=== PATIENT | male | born 1995 | race Caucasian/White ===

== ENCOUNTER 2021-02-03 09:52 | Outpatient (REF) | payer MEDICAID, SELFPAY ==
--- NOTE | 2021-02-03 12:17 | MHC.AU.HFU ---
Hearing Instrument Follow-Up- Binaural Date of Visit: 02/03/21 Right Ear: Accounts Receivable Clerk: Oticon Model: OPN 3 PP BTE Serial Number: [id number] Repair Warranty: 12/05/2018 Battery Size: 13 Color: [place] Brown Tubin-1 Corda Slim Tube Type of Mold: CORDA hard canal lock mold Warranty 02/20/2017 Type of Wax Guard: ProWax (baron) Dispensed By: [facility] Date of Fittin11/23/2016 Left Ear: Accounts Receivable Clerk: Oticon Model: OPN 3 PP BTE Serial Number: [id number] Repair Warranty: 12/05/2018 Battery Size: 13 Color: [place] Brown Tubin-0 Corda Slim Tube Type of Mold: CORDA hard canal lock mold Warranty 02/20/2017 Type of Wax Guard: ProWax (baron) Dispensed By: [facility] Date of Fittin11/23/2016 Follow-Up Summary: Rasheed is accompanied by his mother who reports Rasheed has not been wearing his hearing aids and hearing has changed. Rasheed had ear surgery related to his bilateral T-Tubes and hearing test done at the ENT office was updated in [facility]. Re-programmed OPN 3 PP BTE aids to newest audiogram with patient reporting improvement in hearing while in office. Mother reports Rasheed has been saying the earmold canal lock has been bothering him and the aids have been whistling. The canal lock has not been inserted all the way into the proper area of the ears. Mother practiced insertion and now realizes the proper placement and feedback has stopped. Tried to reprogram the old Oticon Safari 600 BTE aids; however, the right aid would not connect to [facility] software after several attempts. Aid is no longer supportd by Oticon so cannot have it fixed. Cleaned the OPN 3 PP BTE aids cleaning microphones and contacts. Both aids had size 09-2 slim tubes, but the aids were too long and not fitting well over the pinnas. Changed to Right 09-1 and Left 09-0 with improved fit of aids. As patient was leaving office, he reported he did not want to wear the aids now. Mother thinks being able to connect with her Optimal Blue cell phone and listening to his music would motivate him to wear the aids. Mother is interested in a DEMO for the Oticon ConnectClip. The office demo was not charged so could not demo today. Mother will schedule appointment and DEMO is charging on the shelf. Recommendations: Mother will call office to schedule appointment to DEMO OTICON CONNECTCLIP CHARGING ON THE SHELF. Diagnosis Code(s): Primary Diagnosis: H90.6 Mixed Hearing Loss, Bilateral Secondary Diagnosis: H69.93 Unspecified Eustachian Tube Dysfunction, Bilateral Services Performed: [place] Non-Quantity Charges: HAFOC-REFIT [place] MH> 1yr or new to us HACHECKB (MH>1 yr or new to us) Face to face appointment Signature: Provider: Holli Bhatia, CCC-A
== END 2021-02-03 09:53 | disposition home or self-care (01) ==
LOC: HO.HAP 09:52
PROVIDERS: Visit Provider Family Medicine
DX: Z46.1 Encounter for fitting and adjustment of hearing aid (principal); H90.6 Mixed conductive and sensorineural hearing loss, bilateral; H69.93 Unspecified Eustachian tube disorder, bilateral
CPT/HCPCS: 92593; V5011

== ENCOUNTER 2022-10-11 10:43 | Outpatient (REF) | payer OTHER, SELFPAY ==
--- NOTE | 2022-10-11 18:35 | MHC.AU.MED ---
Medical Clearance for Hearing Instrumentation Date: 10/11/22 Patient Name: Rasheed Tillman Date of : 1995 Referring Provider: Oniel Hoffman MD We have seen your patient on 10/11/22 and have determined that they are a candidate for amplification (See accompanying report). Specifically, they would benefit from: Hearing aid use in the right ear Hearing aid use in the left ear Hearing aid use in both ears There is a statute that addresses Medical Evaluation Requirements prior to fitting a patient with a hearing aid. According to [place] statute 265 CMR:6.03(1), (a) General. Except as provided in 265 CMR 6.03(1)(b), a plating technician shall not sell a hearing aid unless the prospective user has presented to the plating technician a written statement signed by a licensed physician that states that the patient's hearing loss has been medically evaluated and the patient may be considered a candidate for a hearing aid. The medical evaluation must have taken place within the preceding six months. Please note: Due to the [place] Statute referenced above, we cannot accept a signature other than that of a licensed physician. UNDERWRITING MANAGER and PA signatures cannot be accepted. I am in agreement with the above recommendation. There is no medical contraindication for hearing instrumentation. Physician Signature Date Physician Name (Printed)
--- NOTE | 2022-10-12 09:04 | MHC.AU.HA1 ---
Hearing Aid Evaluation Date of Visit: 10/11/22 Historical Information: Description of Hearing: Right Ear - Moderately-severe to profound mixed hearing loss Left Ear - Moderate to profound mixed hearing loss Current personal amplification information, if applicable: 2017 binaural Oticon OPN 3 PP BTE Summary: Rasheed has not been using his current aids as they have been uncomfortable and he prefers the standard BTE style he has used in the past. In order to motivate him to wear the aids more, advise new aids with bluetooth capability as he listens to his music often during his day. Hearing Aid Prescription: Based on the individual?s shared listening needs, communication environments, dexterity, desire for connectivity, and personal preferences, the following prescription for amplification has been made: Right ear: Make, Model, Color: Rank By Searchv AI 1600 BTE-R Champagne Battery Size: Rechargeable Plate Slitter And Inspector/Slim Tube: Type of Earmold/Dome/CShell/SlimTip: Roxane - Skeleton mold Left ear:Left ear prescription to be same as Right Hearing Aid above: Make, Model, Color: Access Scientific Evolv AI 1600 BTE-R Champagne Battery Size: Rechargeable Plate Slitter And Inspector/Slim Tube: Type of Earmold/Dome/CShell/SlimTip: Roxane - Skeleton mold Plan of Care: Patient wishes to purchase hearing aids as prescribed Action Taken/Action Needed:Earmold Impressions Taken, Medical Clearance to be requested from PCP/ENT Hearing Instrument Fitting to be scheduled when materials arrive Primary Diagnosis: H90.6 Mixed Hearing Loss, Bilateral Secondary Diagnosis: H69.93 Unspecified Eustachian Tube Dysfunction, Bilateral Signature:Provider: Cristian Bhatia, [facility]
== END 2022-10-11 10:44 | disposition home or self-care (01) ==
LOC: HO.SH 10:43
PROVIDERS: Visit Provider Family Medicine
DX: H90.6 Mixed conductive and sensorineural hearing loss, bilateral (principal); H69.93 Unspecified Eustachian tube disorder, bilateral
CPT/HCPCS: 92557; 92567; 92591; V5275

== ENCOUNTER 2022-11-29 10:09 | Outpatient (REF) | payer OTHER, SELFPAY | END 2022-11-29 10:10 | disposition home or self-care (01) | LOC: HO.HAP 10:09 | PROVIDERS: Visit Provider Family Medicine | DX: Z46.1 Encounter for fitting and adjustment of hearing aid (principal); H90.6 Mixed conductive and sensorineural hearing loss, bilateral | CPT/HCPCS: 92595; V5011; V5020; V5160; V5261; V5264 ==

== ENCOUNTER 2022-12-26 15:54 | Outpatient (REF) | payer OTHER, SELFPAY ==
--- NOTE | 2022-12-27 08:44 | MHC.AU.HA3 ---
Hearing Instrument Follow-Up- Binaural Date of Visit: 12/26/22 Right Ear: Zan, , Color, Serial Number: Roxane HERNANDEZ 1600 BTE-R SN: [id number] Color: Bellae Log Check Scaler Repair Warranty: 02/08/2026 Log Check Scaler Loss and Damage Warranty: 02/08/2026 [facility] Service Plan: 11/30/2023 Battery Size: Rechargeable Earmold/Dome/CShell/SlimTip:Roxane High Strength Silicone 40 Shore Skeleton Earmold SN: [id number] Marian: 02/08/2023 Dispensed By: [facility] Date of Fittin11/29/2022 Left Ear: Zan, , Color, Serial Number: Roxane HERNANDEZ 1600 BTE-R SN: [id number] Color: Luisagne Log Check Scaler Repair Warranty: 02/08/2026 Log Check Scaler Loss and Damage Warranty: 02/08/2026 [facility] Service Plan: 11/29/2022 Battery Size: Rechargeable Earmold/Dome/CShell/SlimTip: Roxane High Strength Silicone 40 Shore Skeleton Earmold SN: [id number] Marian: 02/08/2023 Dispensed By: [facility] Date of Fittin11/29/2022 Follow-Up Summary: Mom reported that overall she notices a significant benefit with these hearing aids compared to his old ones. His communication, participation in conversations, and responsiveness are all greatly improved. Rasheed reportedly loves streaming music to his hearing aids. However, his compliance with wearing the hearing aids is still down. Confirmed via data logging of only 1 hour of use per day. Mom reported that Rasheed will be moving in with her soon and she will encourage and enforce more consistent use. Disabled volume control at mom's request and instructed use for manual on/off using push button. Also discussed WDRC and MPO as mom reported that dad was concerned about settings being too loud. Rasheed reportedly had an appointment [facility] for wax removal, which the office cancelled. Otoscopy revealed clear left ear canal and only slight wax in the right ear canal. Mom and Rasheed decided to donate his old Oticon OPN 3 PP BTE hearing aids. Discussed need for periodic tubing changes. Recommendations: Hearing instrument maintenance in 6 months, or sooner if needed. Please contact our clinic with any questions or concerns. Diagnosis Code(s): Primary Diagnosis: H90.6 Mixed Hearing Loss, Bilateral Signature: Provider: Cristian Jo, [facility]
== END 2022-12-26 15:55 | disposition home or self-care (01) ==
LOC: HO.HAP 15:54
PROVIDERS: Visit Provider Family Medicine
DX: Z13.89 Encounter for screening for other disorder (principal)

== ENCOUNTER 2022-12-31 13:03 | Outpatient (REF) | payer OTHER, SELFPAY | END 2022-12-31 13:04 | disposition home or self-care (01) | LOC: HO.HAP 13:03 | PROVIDERS: Visit Provider Family Medicine | DX: Z13.89 Encounter for screening for other disorder (principal) ==

== ENCOUNTER 2023-01-01 16:08 | Outpatient (REF) | payer OTHER, SELFPAY | END 2023-01-01 16:09 | disposition home or self-care (01) | LOC: HO.HAP 16:08 | PROVIDERS: Visit Provider Family Medicine | DX: Z13.89 Encounter for screening for other disorder (principal) ==

== ENCOUNTER 2023-02-28 13:16 | Outpatient (REF) | payer OTHER, SELFPAY | END 2023-02-28 13:17 | disposition home or self-care (01) | LOC: HO.HAP 13:16 | PROVIDERS: Visit Provider Family Medicine | DX: Z13.89 Encounter for screening for other disorder (principal) ==

== ENCOUNTER 2023-03-01 16:14 | Outpatient (REF) | payer OTHER, SELFPAY | END 2023-03-01 16:15 | disposition home or self-care (01) | LOC: HO.HAP 16:14 | PROVIDERS: Visit Provider Family Medicine | DX: Z13.89 Encounter for screening for other disorder (principal) ==

== ENCOUNTER 2023-04-15 08:59 | Outpatient (REF) | payer OTHER, SELFPAY | END 2023-04-15 09:00 | disposition home or self-care (01) | LOC: HO.HAP 08:59 | PROVIDERS: Visit Provider Family Medicine | DX: Z13.89 Encounter for screening for other disorder (principal) ==

== ENCOUNTER 2024-10-07 10:18 | Emergency (ER) | payer OTHER, SELFPAY ==
--- NOTE | ~2024-10-07 | XR_ITS ---
Exam: 3 views right ankle and 3 view right foot. TECHNIQUE: AP, lateral, and oblique views right lower extremity and right lower extremity joint INDICATION: Pain and swelling since last night FINDINGS: Right ankle: Ankle mortise is preserved. There is borderline widening of the syndesmosis on the mortise view that could be projectional. No fractures identified. No degenerative changes are evident. Right foot: There is hallux valgus deformity. There is no joint diastases or malalignment across the Lisfranc joint. No degenerative changes are evident. No fractures are evident. XR/XR foot RT min 3V IMPRESSION: There is borderline widening of the syndesmosis that could be projectional in nature. Correlate for signs and symptoms of high ankle sprain. There is hallux valgus deformity of the right foot. Electronically signed by: Nate Mari MD 10/07/2024 12:35 PM EDT
--- NOTE | ~2024-10-07 | XR_ITS ---
Exam: 3 views right ankle and 3 view right foot. TECHNIQUE: AP, lateral, and oblique views right lower extremity and right lower extremity joint INDICATION: Pain and swelling since last night FINDINGS: Right ankle: Ankle mortise is preserved. There is borderline widening of the syndesmosis on the mortise view that could be projectional. No fractures identified. No degenerative changes are evident. Right foot: There is hallux valgus deformity. There is no joint diastases or malalignment across the Lisfranc joint. No degenerative changes are evident. No fractures are evident. XR/XR ankle RT min 3V IMPRESSION: There is borderline widening of the syndesmosis that could be projectional in nature. Correlate for signs and symptoms of high ankle sprain. There is hallux valgus deformity of the right foot. Electronically signed by: Nate Mari MD 10/07/2024 12:35 PM EDT
[2024-10-07 10:58] VITALS: BP 114/77; PULSE 84; RESP 16; TEMP 36.3; O2SAT 94
[2024-10-07 11:02] VITALS: BP 114/77; PULSE 84; RESP 16; TEMP 36.3; O2SAT 94; BMI 41.1
--- OUTSIDE RECORDS SUMMARY | 2024-10-07 11:56 | XMS_ITS | Encounter Summary ---
Author Organization [facility] Address [address] [place] [id number] Phone Care Team Providers Care Military Equipment Specialist Name Role Phone Alvina Herrmann MD Primary Care Provider Encounter Details Date Type Department Care Team (Late st Contact Info) Description 06/03/2015 Documentation EM Family Medicine [address] [place] [address] Family Medicine, Physician [address] [place], [place] [id number] Social History Tobacco Use Types Packs/Day Years Used Date Smoking Tobacco: Never Assessed Sex and Gender Information Value Date Recorded Sex Assigned at Not on file Legal Sex Male 5:05 PM EDT Gender Identity Not on file Sexual Orientation Not on file documented as of this encounter Plan of Treatment Not on file documented as of this encounter Visit Diagnoses Not on filedocumented in this encounter Care Teams Military Equipment Specialist Relationship Specialty Start Date End Date Alvina Herrmann MD [address] [place] [address] [place] [id number] PCP - General 12/14/16 08/07/22 documented as of this encounter
--- NOTE | 2024-10-07 11:59 | ED_ITS ---
HPI - Extremity Injury (Lower) General Chief Complaint: Extremity Injury, Lower Stated Complaint: R Foot Non Weight Bearing Time Seen by Provider: 10/07/24 11:51 Source: patient and family Mode of arrival: ambulatory Limitations: no limitations History of Present Illness ED Provider: Bernadine Aleman PA-C HPI Narrative: Right sided foot pain around dorsum of foot, works out 3 days a week. Has flat feet and intermittent feels pain over dorsum of foot and big toe 1st MTP region, soreness no falls or trauma. No paresthesias or weakness. He does not routinely wear his supportive inserts as they are not his most favorite shoes. No knee, calf, toe, or hip pain. No skin color changes. Has a inventory specialist, mother plans to see them soon with patient. Related Data Previous Rx's ?Medication ?Instructions ?Recorded meloxicam 15 mg tablet 15 mg PO DAILY #14 tabs 08/28 Allergies Allergy/AdvReac Type Severity Reaction Status Date / Time sulfamethoxazole (From Allergy Rash Verified 10/07/24 11:05 Bactrim) trimethoprim (From Bactrim) Allergy Rash Verified 10/07/24 11:05 Review of Systems Review of Systems: Yes all other systems are reviewed and are negative Eyes: Eyes: Reports as per [facility] Past Medical History Attestation statement: The following information was validated with the patient. [facility] Narrative: Down Syndrome Physical Exam Vital Signs: Vital Signs: Last Vital Signs Temp 97.3 F 10/07/24 13:07 Pulse 84 10/07/24 13:07 Resp 16 10/07/24 13:07 BP 114/77 10/07/24 13:07 Pulse Ox 94 10/07/24 13:07 O2 Del Method Room Air 10/07/24 13:07 BMI result Body Mass Index 41.1 General: Appears in no acute distress, appears well nourished body habitus is overweight, wide set eyes, appears stated age. No septic or ill-appearing. Vitals reviewed normal, PMH/Social and Surgical hx reviewed including allergies and current medications. - reviewed for prior visits here Head: Normocephalic, no obvious trauma or skin lesions noted. Eyes: EOMI ENMT: moist oral mucosa Neck: trachea midline Cardiovascular: peripheral perfusion normal, Regular heart rate Respiratory: no respiratory distress Abdomen: nondistended Extremities: warm and moving without difficulty- TTP over 1st MTP mild, hallux valgus deformity R side > L side, no erythema or ecchymosis, compartments are soft DTRs intact, patient giggles with sole palpation no ankle instability noted, skin appears well hydrated and healthy. Psych: Cooperative Neuro: Alert and oriented. Course Course Course Narrative: Patient presents to ED today for evaluation of right sided foot pain. NATALIYA is likely repetitive stress and failure to wear supportive foot wear with acquired hallus valgus deformity. This is not work related. H and P as above. Patient is afebrile with stable vitals and well-appearing. History and physical as stated above. Patient is neurovascular intact in the affected extremity. X- rays were obtained to further evaluate. At this time no evidence of NVC to warrant further work up/ intervention or consult. They show no acute fractures. Patient's symptoms are consistent with a foot sprain with exacerbation of hallus valgus deformity leading to regional inflammation of tendon shealth (tenosynovitis), NVI. Wells score for VTE is 0. Discussed icing it, elevating and alternating ibuprofen and Tylenol for discomfort. Discussed that there is no significant improvement in the next 1 to 2 weeks to follow-up with an orthopedic clinic and or his inventory specialist, information given. Discussed symptomatic treatment with the patient and parent. Discussed return precautions. Patient verbalized understanding of the above plan and is in agreement with the above plan. The patient was discharged home in stable condition with return precautions. Medical Decision Making Medical Decision Making MDM Narrative: Patient presents to ED today for evaluation of [] . NATALIYA is []. This [is/is not] work related. H and P as above. Patient is afebrile with stable vitals and well-appearing. History and physical as stated above. Patient is neurovascular intact in the affected extremity. X- rays were obtained to further evaluate. At this time no evidence of NVC to warrant further work up/ intervention or consult. They show no acute fractures. Patient's symptoms are consistent with a [sprain]. Patient's [] was placed in a splint. Discussed icing it, elevating and alternating ibuprofen and Tylenol for discomfort. Discussed that there is no significant improvement in the next 1 to 2 weeks to follow-up with an orthopedic clinic, information given. Discussed symptomatic treatment with the patient. Discussed return precautions. Patient verbalized understanding of the above plan and is in agreement with the above plan. The patient was discharged home in stable condition with return precautions. Differential Diagnosis Differential Diagnoses: The differential diagnosis associated with the presentation includes fracture/ dislocation tenosynovitis gout/ pseudogout strain Admission/Observation Consideration of admission/observation: Escalation of care including admission/observation considered Patient would have been admitted to the hospital had his work up had any findings where hospital admission was appropriate and their clinical presentation warranted hospital admission. Radiology Impression Discussion of test interpretation with radiology: I have reviewed the radiologist's reading. Radiologist Impression: NO fracture Independent Historian Clinical information obtained from an independent historian. History obtained from or confirmed by: Parent Prescription Management I considered prescription management with: Pain Medication Social Determinants Patient?s care significantly limited by Social Determinants of Health including: Other Social Determinant of Health Discharge Plan Discharge Clinical Impression: Valgus deformity of right great toe, Tenosynovitis of right foot Patient Disposition: Home, Self-Care Instructions: Bunion (ED), Tenosynovitis (ED) Additional Instructions: You were seen in the emergency department today due to right-sided foot pain. He having hallux valgus deformity of the right foot this causes the 1st metatarsal to grow outward while pushing the 1st great toe into the 2nd toe causing a lot of strain between the base of this area. This leads to acute on chronic toe pain with intermittent inflammatory swelling. There is no indication of any neurovascular compromise today or soft tissue skin infection. Bones show no acute fracture or dislocation. This is best managed with supportive bunion cushions until more definitive and often times surgical management can be done if needed. It is advised to seek consult via Podiatry. Use the meloxicam as an anti-inflammatory this is long-acting you not need to take any other oral anti-inflammatories at the same time. You can take this with Tylenol 650 mg every 4-6 hours as needed for discomfort do not exceed 3000 mg in 24 hours. Consider topical therapies such as Voltaren gel or Aspercreme such as even Biofreeze or Teto-Meza in the interim. Tried to avoid aggravating activities over the next several days. Please return for any increased pain paresthesias or weakness of the limbs Prescriptions: New meloxicam 15 mg tablet 15 mg PO DAILY Qty: 14 0RF Referrals: Arthur Martin [Emergency Nurse] Referral Note: follow up with your inventory specialist Interventions: ED Discharge Assessment Last Done: 10/07/24 13:07 Discharge Date/Time: 10/07/24 13:09 Print Language: Thai
[2024-10-07 13:07] VITALS: BP 114/77; PULSE 84; RESP 16; TEMP 36.3; O2SAT 94
== END 2024-10-07 13:09 | disposition home or self-care (01) ==
PROVIDERS: Emergency Provider Emergency Medicine Emergency Medical Services; PCP Family Medicine
DX: M65.971 Unspecified synovitis and tenosynovitis, right ankle and foot (principal); M21.071 Valgus deformity, not elsewhere classified, right ankle; M20.61 Acquired deformities of toe(s), unspecified, right foot; M79.671 Pain in right foot
CPT/HCPCS: 73610; 73630; 99283; 99284

== ENCOUNTER → 2024-10-07 11:33 | Outpatient (BNV) | payer OTHER, SELFPAY | PROVIDERS: Emergency Provider Emergency Medicine Emergency Medical Services; PCP Family Medicine; Visit Provider Radiology Diagnostic Radiology | DX: M25.571 Pain in right ankle and joints of right foot (principal); M79.671 Pain in right foot | CPT/HCPCS: 73610; 73630 ==